=== PATIENT | male | born 1945 | race Caucasian/White ===

== ENCOUNTER 2018-01-12 09:28 | Inpatient (IN) | payer BC, MEDICARE ==
[2018-01-12 11:13] LABS: ADD MAN DIFF? NO
[2018-01-12 11:27] LABS: WHITE BLOOD COUNT 6.4 10^3/ul (4.8-10.8)
[2018-01-12 11:27] LABS: BASOPHIL # 0.1 10^3/ul (0.0-0.1); BASOPHILS % 1.3 % (0.0-2.0); EOSINOPHILS # 0.2 10^3/ul (0.0-0.5); HEMATOCRIT 30.6 % (42.0-52.0); HEMOGLOBIN 10.2 g/dl (14.0-18.0); LYMPHOCYTES # 1.4 10^3/ul (0.8-2.9); LYMPHOCYTES % 22.3 % (15.0-51.0); MEAN CORPUSCULAR HEMOGLOBIN 33.2 pg (29.0-33.0); MEAN CORPUSCULAR HGB CONC 33.3 g/dl (32.0-37.0); MEAN CORPUSCULAR VOLUME 99.7 fl (82.0-101.0); MEAN PLATELET VOLUME 10.7 fl (7.4-10.4); MONOCYTE # 0.4 10^3/ul (0.3-0.9); MONOCYTES % 6.6 % (0.0-11.0); NEUTROPHIL # 4.3 10^3/ul (1.6-7.5); NEUTROPHILS % 66.6 % (39.0-77.0); PLATELET COUNT 185 10^3/UL (140-415); RED BLOOD COUNT 3.07 10^6/ul (4.70-6.10); RED CELL DISTRIBUTION WIDTH 14.1 % (11.5-14.5)
[2018-01-12] MEDS ORDERED: CEFAZOLIN 1 GM INJ (11:50)
[2018-01-12] MEDS ORDERED: GELATIN SIZE 100 SPONGE (11:50)
[2018-01-12] MEDS ORDERED: SURGIFOAM POWDER 1 GM KIT (11:50)
[2018-01-12] MEDS ORDERED: BUPIVACAINE 0.5%/EPI (SDV) 30 ML INJ (11:50)
[2018-01-12] MEDS ORDERED: HEPARIN 1000 UNITS/ML 10 ML INJ (11:51)
[2018-01-12] MEDS ORDERED: THROMBIN 5000 UNIT VIAL (11:51)
[2018-01-12] MEDS ORDERED: CA CHLORIDE 10% 10 ML SYRINGE (11:51)
[2018-01-12] MEDS ORDERED: D5W-0.45 NACL + KCL 20 MEQ 1,000 ML IV (12:22)
[2018-01-12] MEDS ORDERED: ZOLPIDEM 5 MG TAB PO (12:30)
[2018-01-12] MEDS ORDERED: BISACODYL 10 MG SUPP PR (12:30)
[2018-01-12] MEDS ORDERED: NALOXONE (0.4 MG/ML) INJ IV (12:30)
[2018-01-12] MEDS ORDERED: HYDROCODONE/APAP (5/325) TAB PO ×2 (12:30)
[2018-01-12] MEDS ORDERED: HYDROmorphONE 0.5 MG/0.5 ML SYG IV (12:30)
[2018-01-12] MEDS ORDERED: AL HYDROX/MG HYDROX/SIMETH 30 ML CUP PO (12:30)
[2018-01-12] MEDS ORDERED: CEFAZOLIN 1 GM/50 ML (PMX) 50 ML IVPB (12:30)
[2018-01-12] MEDS ORDERED: DIPHENHYDRAMINE 50 MG INJ IV (12:30)
[2018-01-12] MEDS ORDERED: ONDANSETRON 4 MG INJ IV (12:30)
[2018-01-12] MEDS ORDERED: CYCLOBENZAPRINE 10 MG TAB PO (12:30)
[2018-01-12] MEDS ORDERED: HYDROmorphONE 0.2 MG/ML PCA IV (12:30)
[2018-01-12] MEDS ORDERED: CEPASTAT LOZENGE MT (12:30)
[2018-01-12] MEDS ORDERED: ACETAMINOPHEN 325 MG TAB PO (12:30)
[2018-01-12 12:34] LABS: ANION GAP 9 (8-16); CARBON DIOXIDE 24 mmol/L (21-31); GLUCOSE 141 mg/dl (70-220)
[2018-01-12 12:47] LABS: POTASSIUM 4.2 mmol/L (3.5-5.1)
[2018-01-12 12:49] LABS: BLOOD UREA NITROGEN 29 mg/dl (7-20); CHLORIDE 112 mmol/L (97-110); CREATININE 2.16 mg/dl (0.61-1.24); SODIUM 141 mmol/L (135-144)
[2018-01-12] MEDS: HYDROCODONE/APAP (10/325) TAB PO ×3 (14:54→21:17)
[2018-01-12] MEDS ORDERED: PIOGLITAZONE 45 MG TAB PO (17:30)
[2018-01-12] MEDS: ACCU-CHEK XX ×2 (18:10→20:17)
[2018-01-12] MEDS: FENOFIBRATE 145 MG TAB PO (18:16)
[2018-01-12] MEDS: LINAGLIPTIN 5 MG TABLET PO (18:16)
[2018-01-12] MEDS: METOPROLOL (XL) 25 MG TAB PO (18:16)
[2018-01-12] MEDS: PIOGLITAZONE 15 MG TAB PO (19:07)
[2018-01-12] MEDS: EZETIMIBE 10 MG TAB PO (20:15)
[2018-01-12] MEDS ORDERED: DOCUSATE SODIUM 100 MG CAP PO (21:00)
[2018-01-12] MEDS: SOD CHLORIDE 0.45% 1,000 ML IV (23:35)
[2018-01-13 05:17] LABS: ADD MAN DIFF? NO
[2018-01-13] MEDS: ACCU-CHEK XX ×11 (05:18→20:52)
[2018-01-13 05:28] LABS: BASOPHIL # 0.1 10^3/ul (0.0-0.1); BASOPHILS % 0.8 % (0.0-2.0); EOSINOPHILS # 0.2 10^3/ul (0.0-0.5); EOSINOPHILS % 3.8 % (0.0-7.0); HEMATOCRIT 31.1 % (42.0-52.0); HEMOGLOBIN 10.2 g/dl (14.0-18.0); LYMPHOCYTES # 2.4 10^3/ul (0.8-2.9); LYMPHOCYTES % 39.9 % (15.0-51.0); MEAN CORPUSCULAR HEMOGLOBIN 32.5 pg (29.0-33.0); MEAN CORPUSCULAR HGB CONC 32.8 g/dl (32.0-37.0); MEAN PLATELET VOLUME 10.6 fl (7.4-10.4); MONOCYTE # 0.4 10^3/ul (0.3-0.9); MONOCYTES % 7.3 % (0.0-11.0); NEUTROPHIL # 2.9 10^3/ul (1.6-7.5); NEUTROPHILS % 47.9 % (39.0-77.0); PLATELET COUNT 178 10^3/UL (140-415); RED BLOOD COUNT 3.14 10^6/ul (4.70-6.10); RED CELL DISTRIBUTION WIDTH 14.2 % (11.5-14.5)
[2018-01-13 05:52] LABS: ANION GAP 15 (8-16); BLOOD UREA NITROGEN 27 mg/dl (7-20); CALCIUM 8.9 mg/dl (8.4-10.2); CARBON DIOXIDE 24 mmol/L (21-31); CHLORIDE 109 mmol/L (97-110); CREATININE 2.15 mg/dl (0.61-1.24); GLUCOSE 102 mg/dl (70-220); MAGNESIUM 1.8 mg/dl (1.7-2.5); POTASSIUM 4.5 mmol/L (3.5-5.1); SODIUM 143 mmol/L (135-144)
[2018-01-13] MEDS: DIPHENHYDRAMINE 50 MG INJ IV ×3 (05:52→16:08)
[2018-01-13] MEDS ORDERED: PANTOPRAZOLE 40 MG INJ IV (06:00)
[2018-01-13] MEDS ORDERED: ROCURONIUM 50 MG INJ ×2 (07:00→11:59)
[2018-01-13] MEDS: FENOFIBRATE 145 MG TAB PO (08:48)
[2018-01-13] MEDS: LINAGLIPTIN 5 MG TABLET PO (08:48)
[2018-01-13] MEDS: PIOGLITAZONE 15 MG TAB PO (08:54)
[2018-01-13] MEDS: SOD CHLORIDE 0.45% 1,000 ML IV ×2 (10:00→20:00)
[2018-01-13] MEDS ORDERED: SURGIFOAM POWDER 1 GM KIT (10:19)
[2018-01-13] MEDS ORDERED: CEPASTAT LOZENGE MT (11:30)
[2018-01-13] MEDS ORDERED: ONDANSETRON 4 MG INJ IV ×2 (11:30→15:00)
[2018-01-13] MEDS: CEFAZOLIN 1 GM/50 ML (PMX) 50 ML IVPB ×2 (11:30→15:48)
[2018-01-13] MEDS ORDERED: BISACODYL 10 MG SUPP PR (11:30)
[2018-01-13] MEDS ORDERED: AL HYDROX/MG HYDROX/SIMETH 30 ML CUP PO (11:30)
[2018-01-13] MEDS ORDERED: DIPHENHYDRAMINE 50 MG INJ IV (11:30)
[2018-01-13] MEDS ORDERED: NALOXONE (0.4 MG/ML) INJ IV (11:30)
[2018-01-13] MEDS ORDERED: HYDROmorphONE 0.5 MG/0.5 ML SYG IV ×2 (11:30→15:00)
[2018-01-13] MEDS ORDERED: MIDAZOLAM 1 MG/ML 2 ML INJ ×2 (11:41→14:55)
[2018-01-13] MEDS ORDERED: PROPOFOL 20 ML (11:46)
[2018-01-13] MEDS ORDERED: METOCLOPRAMIDE 10 MG INJ ×2 (11:46→14:55)
[2018-01-13] MEDS ORDERED: FENTAnyl 50 MCG/ML VIAL ×2 (11:47→14:57)
[2018-01-13] MEDS ORDERED: CEFAZOLIN 1 GM INJ (11:58)
[2018-01-13] MEDS ORDERED: SUCCINYLCHOLINE CHLORIDE 100 MG/5 ML SYG IV (11:59)
[2018-01-13] MEDS ORDERED: ONDANSETRON 4 MG INJ (11:59)
[2018-01-13] MEDS ORDERED: METOPROLOL 5 MG INJ (12:33)
[2018-01-13] MEDS: BUPIVACAINE 0.5%/EPI (SDV) 30 ML INJ (12:42)
[2018-01-13] MEDS: CEFAZOLIN 1 GM INJ (12:43)
[2018-01-13] MEDS: SURGIFOAM POWDER 1 GM KIT (12:43)
[2018-01-13] MEDS: HEPARIN 1000 UNITS/ML 10 ML INJ (12:44)
[2018-01-13] MEDS: THROMBIN 5000 UNIT VIAL (12:44)
[2018-01-13] MEDS: CA CHLORIDE 10% 10 ML SYRINGE (14:24)
[2018-01-13] MEDS: CEFAZOLIN 2 GM/50 ML (PMX) 50 ML IVPB (14:30)
[2018-01-13] MEDS ORDERED: HYDROmorphONE (0.2 MG/ML) 10ML SYG IV ×3 (14:42→15:00)
[2018-01-13] MEDS ORDERED: NEOSTIGMINE 3 MG/3 ML SYRINGE (14:49)
[2018-01-13] MEDS ORDERED: GLYCOPYRROLATE 0.4 MG INJ (14:49)
[2018-01-13] MEDS ORDERED: D5W-0.45 NACL + KCL 20 MEQ 1,000 ML IV (15:00)
[2018-01-13] MEDS ORDERED: ALBUTEROL 0.5% (NEB) 2.5 MG/0.5 ML AMP (15:00)
[2018-01-13] MEDS ORDERED: MEPERIDINE 25 MG INJ IV (15:00)
[2018-01-13] MEDS ORDERED: HYDROmorphONE 0.2 MG/ML PCA IV (15:00)
[2018-01-13] MEDS ORDERED: ALBUTEROL 0.083% (NEB) 2.5 MG/3 ML AMP (15:00)
[2018-01-13] MEDS ORDERED: CEFAZOLIN 1 GM/50 ML (PMX) 50 ML IVPB (15:00)
[2018-01-13] MEDS: HYDROmorphONE (0.2 MG/ML) 10ML SYG IV (15:29)
[2018-01-13] MEDS: HYDROmorphONE 0.2 MG/ML PCA IV (15:32)
[2018-01-13] MEDS: ALBUTEROL 0.083% (NEB) 2.5 MG/3 ML AMP HHN ×2 (15:45)
[2018-01-13] MEDS: D5W-0.45 NACL + KCL 20 MEQ 1,000 ML IV ×2 (16:44→21:03)
[2018-01-13] MEDS: BETHANECHOL 10 MG TAB PO (17:59)
[2018-01-13] MEDS: EZETIMIBE 10 MG TAB PO (20:43)
[2018-01-13] MEDS: DOCUSATE SODIUM 100 MG CAP PO (20:43)
[2018-01-14] MEDS: ZOLPIDEM 5 MG TAB PO ×2 (02:52→23:20)
[2018-01-14] MEDS: D5W-0.45 NACL + KCL 20 MEQ 1,000 ML IV (02:53)
[2018-01-14] MEDS: SOD CHLORIDE 0.45% 1,000 ML IV (04:53)
[2018-01-14 05:35] LABS: ADD MAN DIFF? NO
[2018-01-14 05:44] LABS: WHITE BLOOD COUNT 7.6 10^3/ul (4.8-10.8)
[2018-01-14 05:44] LABS: BASOPHIL # 0.1 10^3/ul (0.0-0.1); BASOPHILS % 0.8 % (0.0-2.0); EOSINOPHILS # 0.1 10^3/ul (0.0-0.5); EOSINOPHILS % 1.8 % (0.0-7.0); HEMATOCRIT 28.6 % (42.0-52.0); HEMOGLOBIN 9.5 g/dl (14.0-18.0); LYMPHOCYTES # 1.5 10^3/ul (0.8-2.9); MEAN CORPUSCULAR HEMOGLOBIN 32.6 pg (29.0-33.0); MEAN CORPUSCULAR HGB CONC 33.2 g/dl (32.0-37.0); MEAN CORPUSCULAR VOLUME 98.3 fl (82.0-101.0); MEAN PLATELET VOLUME 10.9 fl (7.4-10.4); MONOCYTE # 0.6 10^3/ul (0.3-0.9); MONOCYTES % 7.9 % (0.0-11.0); NEUTROPHIL # 5.3 10^3/ul (1.6-7.5); NEUTROPHILS % 69.1 % (39.0-77.0); PLATELET COUNT 175 10^3/UL (140-415); RED BLOOD COUNT 2.91 10^6/ul (4.70-6.10); RED CELL DISTRIBUTION WIDTH 13.9 % (11.5-14.5)
[2018-01-14 06:02] LABS: ANION GAP 12 (8-16); BLOOD UREA NITROGEN 24 mg/dl (7-20); CALCIUM 8.9 mg/dl (8.4-10.2); CARBON DIOXIDE 26 mmol/L (21-31); CHLORIDE 109 mmol/L (97-110); CREATININE 2.51 mg/dl (0.61-1.24); GLUCOSE 135 mg/dl (70-220); MAGNESIUM 1.7 mg/dl (1.7-2.5); POTASSIUM 4.7 mmol/L (3.5-5.1); SODIUM 142 mmol/L (135-144)
[2018-01-14] MEDS: ACCU-CHEK XX ×6 (08:50→19:55)
[2018-01-14] MEDS: FENOFIBRATE 145 MG TAB PO (08:52)
[2018-01-14] MEDS: FAMOTIDINE 20 MG INJ IV (08:52)
[2018-01-14] MEDS: LINAGLIPTIN 5 MG TABLET PO (08:53)
[2018-01-14] MEDS: DOCUSATE SODIUM 100 MG CAP PO ×2 (08:53→21:00)
[2018-01-14] MEDS: PIOGLITAZONE 15 MG TAB PO (08:53)
[2018-01-14] MEDS: HYDROmorphONE 0.2 MG/ML PCA IV (09:17)
[2018-01-14] MEDS: METOPROLOL (XL) 25 MG TAB PO (09:19)
[2018-01-14] MEDS: LACTATED RINGER'S 500 ML IV (09:19)
[2018-01-14] MEDS: ACETAMINOPHEN 325 MG TAB PO (15:08)
[2018-01-14 19:04] LABS: ADD UMIC YES; UR ASCORBIC ACID NEGATIVE (NEGATIVE); UR BILIRUBIN (Dip) NEGATIVE (NEGATIVE); UR BLOOD (Dip) 1+ mg/dL (NEGATIVE); UR CLARITY CLEAR (CLEAR); UR COLOR STRAW (YELLOW); UR GLUCOSE (Dip) NEGATIVE (NEGATIVE); UR KETONES (Dip) NEGATIVE (NEGATIVE); UR LEUKOCYTE ESTERASE (Dip) NEGATIVE Leu/ul (NEGATIVE); UR NITRITE (Dip) NEGATIVE (NEGATIVE); UR RBC 1 /HPF (0-5); UR SPECIFIC GRAVITY (Dip) 1.003 (1.003-1.030); UR TOTAL PROTEIN (Dip) NEGATIVE (NEGATIVE); UR UROBILINOGEN (Dip) NEGATIVE (NEGATIVE); UR WBC 2 /HPF (0-5)
[2018-01-14] MEDS: CYCLOBENZAPRINE 10 MG TAB PO (21:00)
[2018-01-14] MEDS: EZETIMIBE 10 MG TAB PO (21:00)
[2018-01-15] MEDS: ZOLPIDEM 5 MG TAB PO ×3 (00:45→23:20)
[2018-01-15] MEDS: HYDROmorphONE 0.2 MG/ML PCA IV (00:47)
[2018-01-15 05:28] LABS: ADD MAN DIFF? NO
[2018-01-15 05:30] LABS: WHITE BLOOD COUNT 8.4 10^3/ul (4.8-10.8)
[2018-01-15 05:30] LABS: BASOPHILS % 0.5 % (0.0-2.0); EOSINOPHILS # 0.1 10^3/ul (0.0-0.5); EOSINOPHILS % 1.1 % (0.0-7.0); HEMATOCRIT 27.2 % (42.0-52.0); LYMPHOCYTES # 1.3 10^3/ul (0.8-2.9); LYMPHOCYTES % 15.8 % (15.0-51.0); MEAN CORPUSCULAR HEMOGLOBIN 32.4 pg (29.0-33.0); MEAN CORPUSCULAR HGB CONC 33.1 g/dl (32.0-37.0); MEAN CORPUSCULAR VOLUME 97.8 fl (82.0-101.0); MEAN PLATELET VOLUME 10.6 fl (7.4-10.4); MONOCYTE # 0.9 10^3/ul (0.3-0.9); MONOCYTES % 10.8 % (0.0-11.0); NEUTROPHILS % 71.3 % (39.0-77.0); PLATELET COUNT 169 10^3/UL (140-415); RED BLOOD COUNT 2.78 10^6/ul (4.70-6.10); RED CELL DISTRIBUTION WIDTH 13.7 % (11.5-14.5)
[2018-01-15 05:47] LABS: ANION GAP 14 (8-16); BLOOD UREA NITROGEN 22 mg/dl (7-20); CALCIUM 9.3 mg/dl (8.4-10.2); CARBON DIOXIDE 25 mmol/L (21-31); CHLORIDE 109 mmol/L (97-110); CREATININE 2.26 mg/dl (0.61-1.24); GLUCOSE 120 mg/dl (70-220); MAGNESIUM 1.7 mg/dl (1.7-2.5); POTASSIUM 4.8 mmol/L (3.5-5.1); SODIUM 143 mmol/L (135-144)
[2018-01-15] MEDS: ACCU-CHEK XX ×6 (08:30→19:55)
[2018-01-15] MEDS: FAMOTIDINE 20 MG INJ IV (09:00)
[2018-01-15] MEDS: DOCUSATE SODIUM 100 MG CAP PO ×2 (09:30→21:50)
[2018-01-15] MEDS: FENOFIBRATE 145 MG TAB PO (09:31)
[2018-01-15] MEDS: LINAGLIPTIN 5 MG TABLET PO (09:31)
[2018-01-15] MEDS: PIOGLITAZONE 15 MG TAB PO (09:31)
[2018-01-15] MEDS: METOPROLOL (XL) 25 MG TAB PO (09:32)
[2018-01-15] MEDS: HYDROCODONE/APAP (5/325) TAB PO ×3 (09:38→22:11)
[2018-01-15] MEDS ORDERED: LOSARTAN 50 MG TAB PO (13:00)
[2018-01-15] MEDS ORDERED: MAGNESIUM SULFATE 4 GM/100 ML 100 ML IVPB (13:30)
[2018-01-15] MEDS: MAGNESIUM SULFATE 4 GM/100 ML 100 ML IVPB (16:51)
[2018-01-15] MEDS: EZETIMIBE 10 MG TAB PO (21:51)
[2018-01-16 05:09] LABS: WHITE BLOOD COUNT 7.9 10^3/ul (4.8-10.8)
[2018-01-16 05:09] LABS: ADD MAN DIFF? NO; BASOPHIL # 0.1 10^3/ul (0.0-0.1); BASOPHILS % 0.6 % (0.0-2.0); EOSINOPHILS # 0.3 10^3/ul (0.0-0.5); EOSINOPHILS % 3.2 % (0.0-7.0); HEMATOCRIT 27.3 % (42.0-52.0); HEMOGLOBIN 9.2 g/dl (14.0-18.0); LYMPHOCYTES % 24.8 % (15.0-51.0); MEAN CORPUSCULAR HEMOGLOBIN 32.4 pg (29.0-33.0); MEAN CORPUSCULAR HGB CONC 33.7 g/dl (32.0-37.0); MEAN CORPUSCULAR VOLUME 96.1 fl (82.0-101.0); MEAN PLATELET VOLUME 10.2 fl (7.4-10.4); MONOCYTE # 0.7 10^3/ul (0.3-0.9); MONOCYTES % 8.3 % (0.0-11.0); NEUTROPHILS % 62.6 % (39.0-77.0); PLATELET COUNT 167 10^3/UL (140-415); RED BLOOD COUNT 2.84 10^6/ul (4.70-6.10); RED CELL DISTRIBUTION WIDTH 13.7 % (11.5-14.5)
[2018-01-16 05:35] LABS: ALANINE AMINOTRANSFERASE 20 IU/L (13-69); ALBUMIN 3.6 g/dl (3.3-4.9); ALBUMIN/GLOBULIN RATIO 1.16; ALKALINE PHOSPHATASE 50 IU/L (42-121); ANION GAP 12 (8-16); ASPARTATE AMINO TRANSFERASE 33 IU/L (15-46); BILIRUBIN,INDIRECT 0.5 mg/dl (0-1.1); BILIRUBIN,TOTAL 0.5 mg/dl (0.2-1.3); BLOOD UREA NITROGEN 25 mg/dl (7-20); CALCIUM 9.5 mg/dl (8.4-10.2); CARBON DIOXIDE 26 mmol/L (21-31); CHLORIDE 108 mmol/L (97-110); GLUCOSE 119 mg/dl (70-220); POTASSIUM 3.9 mmol/L (3.5-5.1); SODIUM 142 mmol/L (135-144); TOTAL PROTEIN 6.7 g/dl (6.1-8.1)
[2018-01-16] MEDS: ACCU-CHEK XX ×2 (07:20→10:51)
[2018-01-16] MEDS: DOCUSATE SODIUM 100 MG CAP PO (09:17)
[2018-01-16] MEDS: HYDROCODONE/APAP (10/325) TAB PO ×2 (09:18→10:57)
[2018-01-16] MEDS: FENOFIBRATE 145 MG TAB PO (09:18)
[2018-01-16] MEDS: PIOGLITAZONE 15 MG TAB PO (09:18)
[2018-01-16] MEDS: LINAGLIPTIN 5 MG TABLET PO (09:18)
[2018-01-16] MEDS: METOPROLOL (XL) 25 MG TAB PO (09:19)
[2018-01-16] MEDS: LOSARTAN 25 MG TAB PO (09:19)
[2018-01-16] MEDS: FAMOTIDINE 20 MG TAB PO (09:24)
== END 2018-01-16 13:05 | disposition home or self-care (01) | DRG 519 ==
LOC: REC 09:28 → MS1 13:45
PROVIDERS: Specialist
PROC: 00BY0ZZ Excision of Lumbar Spinal Cord, Open Approach (ICD-10-PCS; principal; 2018-01-13 11:30)
PROC: 30253H0 (ICD-10-PCS; 2018-01-13 11:30)
DX: M48.061 Spinal stenosis, lumbar region without neurogenic claudication (principal); I45.2 Bifascicular block; D62 Acute posthemorrhagic anemia; M54.16 Radiculopathy, lumbar region; M71.38 Other bursal cyst, other site; E78.5 Hyperlipidemia, unspecified; D51.9 Vitamin B12 deficiency anemia, unspecified; E11.21 Type 2 diabetes mellitus with diabetic nephropathy; E11.22 Type 2 diabetes mellitus with diabetic chronic kidney disease; N18.3 Chronic kidney disease, stage 3 (moderate)
CPT/HCPCS: 72020; 80048; 80053; 81001; 82962; 83735; 85025; 86850; 86900; 86901; 86999; 87040; 87086; 93306; 94664; 97110; 97116; 97161; 97530; 99217

== ENCOUNTER 2018-01-20 18:55 | Emergency (ER) | payer OTHER, MEDICARE, BC ==
[2018-01-20 20:28] LABS: URINE BLOOD (Dip) POC Negative (NEGATIVE); URINE GLUCOSE (Dip) POC Negative (NEGATIVE); URINE KETONES (Dip) POC Negative (NEGATIVE); URINE LEUKOCYTE EST (Dip) POC Negative (NEGATIVE); URINE NITRITE (Dip) POC Negative (NEGATIVE); URINE TOTAL PROTEIN POC 1+ (NEGATIVE)
== END 2018-01-20 21:38 | disposition home or self-care (01) ==
LOC: FTE 18:55
DX: R33.9 Retention of urine, unspecified (principal); M96.1 Postlaminectomy syndrome, not elsewhere classified; E11.9 Type 2 diabetes mellitus without complications; Z79.84 Long term (current) use of oral hypoglycemic drugs
CPT/HCPCS: 51702; 81003; 99283-25